=== PATIENT | female | born 1970 | race Caucasian/White ===

== ENCOUNTER 2020-03-27 06:08 | Day surgery (SDC) | payer OTHER ==
[2020-03-27] MEDS ORDERED: SODIUM CHLORIDE 0.9% 1,000 ML IV SCH (07:00)
[2020-03-27] MEDS ORDERED: PLEASE ENTER ALLERGIES MC SCH (07:30)
[2020-03-27] MEDS ORDERED: PLEASE ENTER HEIGHT AND WEIGHT MC SCH (07:30)
[2020-03-27 07:45] LABS: BASOPHILS % (AUTO) 1 % (0-1); EOSINOPHILS % (AUTO) 2 % (1-7); LYMPHOCYTES % (AUTO) 23 % (22-44); MEAN CORPUSCULAR HEMOGLOBIN 28.4 pg (27.0-34.8); MEAN CORPUSCULAR HGB CONC 32.4 g/dL (32.4-35.8); MEAN PLATELET VOLUME 8.2 fL (7.4-10.4); MONOCYTES % (AUTO) 8 % (2-9); NEUTROPHILS % (AUTO) 65 % (42-75); PLATELET COUNT 441 x10^3/uL (130-400); RED CELL DISTRIBUTION WIDTH 15.1 % (9.6-15.2)
[2020-03-27] MEDS ORDERED: FENTANYL PF 100 MCG/2ML ONE (08:08)
[2020-03-27] MEDS ORDERED: NALOXONE 1 MG/ML, 2ML ONE (08:08)
[2020-03-27] MEDS ORDERED: MIDAZOLAM 1 MG/ML, 5ML ONE (08:08)
[2020-03-27] MEDS ORDERED: FLUMAZENIL 0.1 MG/1 ML, 5ML ONE (08:08)
[2020-03-27] MEDS ORDERED: LIDOCAINE 1%, 10ML ONE (08:10)
[2020-03-27 08:25] LABS: MD SCAN
== END 2020-03-27 10:10 | disposition home or self-care (01) ==
LOC: OUT 06:08
PROVIDERS: ATTEND Internal Medicine Hematology & Oncology
DX: D72.829 Elevated white blood cell count, unspecified (principal); D47.3 Essential (hemorrhagic) thrombocythemia; D72.828 Other elevated white blood cell count; Z72.9 Problem related to lifestyle, unspecified
CPT/HCPCS: 36415; 38222; 77012; 85025; 85060; 85097; 88237; 88264; 88280; 88305; 88311; 88313; 99156; 99157; J2250; J3010; J2310